=== PATIENT | female | born 1985 | race Caucasian/White ===

== ENCOUNTER 2024-09-02 19:39 | Emergency (ER) | payer OTHER, SELFPAY ==
[2024-09-02 19:46] VITALS: BP 179/123; PULSE 95; RESP 18; TEMP 36.4; O2SAT 97
[2024-09-02 19:52] VITALS: BP 190/133
[2024-09-02 20:38] VITALS: BP 158/107
--- NOTE | 2024-09-02 21:01 | ED_ITS ---
HPI - URI/Sore Throat General Chief Complaint: Upper Respiratory Infection Stated Complaint: Trouble Breathing Time Seen by Provider: 09/02/24 20:15 Source: patient and RN notes reviewed Mode of arrival: ambulatory Limitations: no limitations History of Present Illness HPI Narrative: 38-year-old female presents Express Care complaining of upper respiratory symptoms for 2 months. Patient says she has been off and on antibiotics and steroids for the same symptoms. Patient said that the antibiotics have helped in the past the [place] upon returning. Patient reports having a productive cough with green yellow discharge. Patient also reports chronic congestion and nasal drainage, and voice hoarseness. She denies any chest pain or shortness of breath. Says the cough worsens at night. Patient denies any fevers, chills, body aches, nausea, vomiting, diarrhea. Related Data Home Medications ?Medication ?Instructions ?Recorded ?Confirmed ?Last Taken ?Type albuterol sulfate 90 mcg/actuation 1 puff inhalation QID 09/02/24 09/02/24 Unknown History aerosol inhaler escitalopram oxalate 10 mg tablet 10 mg PO DAILY 09/02/24 09/02/24 Unknown History hydroxyzine HCl 25 mg tablet 25 mg PO HS 09/02/24 09/02/24 Unknown History Allergies Allergy/AdvReac Type Severity Reaction Status Date / Time No Known Allergies Allergy Unverified 09/02/24 19:51 Review of Systems Review of Systems: CONSTITUTIONAL: Denies fever, body aches, chills, or sweats. EYES: Denies visual changes, redness, or discharge. ENT: Denies rhinorrhea, sore throat, or otalgia. Positive for congestion and voice hoarseness. CARDIOVASCULAR: Denies chest pain, palpitations, or edema. RESPIRATORY: Positive for cough, negative for dyspnea. GASTROINTESTINAL: Denies abdominal pain, nausea, vomiting, or diarrhea. GENITOURINARY: Denies dysuria or hematuria. SKIN: Denies rash or itching. MUSCULOSKELETAL: Denies back pain, joint pain, or myalgia. NEUROLOGIC: Denies headache, numbness, or weakness. PSYCHIATRIC: Denies anxiety or depression. All other systems reviewed are negative, except as documented in HPI. PMFSH Comments At the time of my signature, I reviewed and agree with the nursing past medical, surgical, social, and family history. There is no relevant family history pertinent to the patient complaint. Exam Narrative: GENERAL: This is a well-nourished, well-developed adult, in no apparent distress. They are non ill-appearing, nontoxic appearing. HEAD: normocephalic, atraumatic. EYES: Sclera clear/white. Conjunctiva normal. Vision is grossly intact. Extraocular movements intact EARS: External ears normal, auditory canals clear and without drainage, TMs normal without perforation. Hearing grossly intact. NOSE: External nose normal with no obvious nasal discharge, nasal turbinates erythematous with yellow discharge present. Sinus tenderness to palpation to the maxillary sinuses. THROAT: Mucous membranes moist, posterior pharynx clear, without erythema or swelling. Uvula midline. Postnasal drip present. NECK: Neck supple, non-tender without lymphadenopathy, masses or thyromegaly. CARDIOVASCULAR: Regular rate and rhythm without murmurs, gallops, or rubs. RESPIRATORY: Clear to auscultation. Breath sounds equal bilaterally. No wheezes, rales, or rhonchi. Respiratory rate normal, respiratory effort nonlabored, no respiratory distress SKIN: warm, Dry, intact with no suspicious lesions or rash, good texture and turgor. NEURO: awake, alert, and oriented to person, place and time. There were no obvious focal neurologic abnormalities. EXTREMITIES: No joint tenderness, effusion, or edema noted. BACK: Nontender without deformity. No CVA tenderness. Course Course Emergency Course: Portions of this record may have been created with voice recognition software Level of Care: Express Care Visit Vital Signs Vital signs: Vital Signs Temperature 97.6 F 09/02/24 19:46 Pulse Rate 95 09/02/24 19:46 Respiratory Rate 18 09/02/24 19:46 Blood Pressure 179/123 H 09/02/24 19:46 Pulse Oximetry 97 09/02/24 19:46 Oxygen Delivery Room Air 09/02/24 19:46 Temperature 97.6 F 09/02/24 19:46 Pulse Rate 95 09/02/24 19:46 Respiratory Rate 18 09/02/24 19:46 Blood Pressure 158/107 H 09/02/24 20:38 Pulse Oximetry 97 09/02/24 19:46 Oxygen Delivery Room Air 09/02/24 19:46 Reviewed MDM - URI/Sore Throat MDM Narrative Medical decision making narrative: Is likely the patient has a recurrent sinusitis. Patient was last treated with a Z-[place] which is likely ineffective for sinus infection. Will treat her empirically with doxycycline. Patient likely may have a chronic bronchitis. Or give her additional prednisone pack. Patient is advised follow-up with PCP or ENT for further evaluation of her symptoms. Discussed physical exam findings. Advised supportive measures and signs/symptoms to go to the ER. Pt is appropriate for outpt treatment and f/u. It was noted patient's blood pressure was elevated while during her visit. Patient denies any hypertension history. Patient denies any symptoms or any headaches, blurry vision, chest pain. Recheck in the patient's blood pressure showed improvement to 158/107 using appropriate cuff size her patient. Patient advised follow-up PCP for further management of her blood pressure. Differential Diagnosis Differential diagnosis: Likely sinusitis, bronchitis and other (Pneumonia) Critical Care Time Critical Care Time Critical Care Time: No Discharge Plan Discharge Clinical Impression: Bronchitis Sinusitis Qualifiers: Sinusitis location: unspecified location Chronicity: acute Recurrence: recurrent Qualified Code(s): J01.91 - Acute recurrent sinusitis, unspecified Patient Disposition: Home Condition: Stable Instructions: Antibiotic Form, Sinusitis (ED), Acute Bronchitis (ED) Additional Instructions: Take prednisone as directed. Taken in the morning with food. Use albuterol as needed for any wheezing or shortness of breath. Take the antibiotics as directed and complete the course even if you start to feel better. Or sunscreen while taking doxycycline for going to be outside. You may use a Neti pot saline rinse 3 times a day luke warm distilled water. Continue to take Tylenol or Motrin for pain. Use a humidifier or vaporizer at night. Drink plenty of water. 8-10 glasses per day. Use flonase 2 times per day for 5 days then as needed Take mucinex 2 times per day and be sure to take with 8oz of water. Follow up with Primary provider if not getting better. You may need to follow-up with ENT for recurrent sinusitis. Patient Language: Monegasque Prescriptions: New prednisone 20 mg tablet 40 mg PO DAILY 5 Days Qty: 10 0RF doxycycline monohydrate 100 mg capsule 100 mg PO BID 7 Days Qty: 14 0RF albuterol sulfate [Ventolin HFA] 90 mcg/actuation HFA aerosol inhaler 2 puff inhalation QID PRN (Reason: shortness of breath or wheezing) Qty: 8.5 0RF No Action albuterol sulfate 90 mcg/actuation HFA aerosol inhaler 1 puff INHALATION QID escitalopram oxalate 10 mg tablet 10 mg PO DAILY hydroxyzine HCl 25 mg tablet 25 mg PO HS Follow-up/Referrals: Rita Pat MD [Physician] - PHYSICIAN,BLASTING ENTRYMAN [Primary Care Provider] - Time of Disposition: 20:37
== END 2024-09-02 20:42 | disposition home or self-care (01) ==
DX: J40 Bronchitis, not specified as acute or chronic (principal); J01.91 Acute recurrent sinusitis, unspecified; F41.9 Anxiety disorder, unspecified
CPT/HCPCS: 99213; G0463

== ENCOUNTER 2025-02-26 18:32 | Emergency (ER) | payer OTHER, SELFPAY ==
--- NOTE | ~2025-02-26 | XR_ITS ---
XR chest 2V HOSTORY: palpitations COMPARISON:[ None] FINDINGS: Frontal and lateral views of the chest were obtained. The lungs are clear. The heart size is normal in size. Pulmonary vasculature is unremarkable. Osseous structures are intact. IMPRESSION: No acute lung findings.] [ ] Reviewed, dictated and finalized at location S.
[2025-02-26 18:34] VITALS: BP 226/118; PULSE 92; RESP 16; TEMP 36.6; O2SAT 98
--- NOTE | 2025-02-26 18:39 | ECG_ITS ---
Test Date: 2025-02-26 18:40:45 Measurements Intervals [place] Rate: 75 P: 19 MO: 153 QRS: 45 QRSD: 88 T: 17 QT: 362 QTc: 406 Interpretive Statements SINUS RHYTHM WITH SINUS ARRHYTHMIA CONSIDER INFERIOR INFARCT, AGE INDETERMINATE ABNORMAL ECG No previous ECG available for comparison Electronically Signed On 02-26-2025 20:23:02 CDT by Abdon Davies D.O.
[2025-02-26 18:50] LABS: Hematocrit 42.9 % (37.0-47.0); Hemoglobin 13.7 g/dL (12.0-15.0); Immature Granulocyte Percent A 0.3 % (0-0.5); Lymphocytes Absolute Auto 4.15 K/mm3 (0.9-3.2); Mean Corpuscular HGB Conc 31.9 g/dl (32-36); Mean Corpuscular Hemoglobin 27.3 pg (26-34); Mean Corpuscular Volume 85.5 fl (80-100); Nucleated Red Blood Cells Absolute Auto 0.000 K/mm3 (0.0-0.012); Nucleated Red Blood Cells Perc 0.0 % (0.0-0.2); Platelet Count Result 410 k/mm3 (150-375); Red Blood Count 5.02 M/mm3 (4.2-5.4); White Blood Count 12.0 K/mm3 (4.5-10.0)
[2025-02-26 19:02] LABS: INR 1.0; Prothrombin Time 12.8 Seconds (11.1-14.7)
[2025-02-26 19:03] LABS: Partial Thromboplastin Time 28.8 Seconds (22.3-36.8)
[2025-02-26 19:05] LABS: Alanine Aminotransferase 45 U/L (6-35); Albumin Level 4.5 g/dL (3.5-5.1); Alkaline Phosphatase 90 U/L (38-126); Anion Gap 10 mmol/L (4-12); Aspartate Amino Transferase 38 U/L (14-36); Bilirubin,Total 0.5 mg/dL (0.2-1.3); Blood Urea Nitrogen 10 mg/dL (7-17); Calcium 9.1 mg/dL (8.4-10.2); Carbon Dioxide 27 mmol/L (22-30); Chloride 103 mmol/L (98-107); Estimated CRCL calculation 153 ml/min; Estimated Glomerular Filt Rate > 60; Glucose 90 mg/dL (65-110); Lipase 60 U/L (23-300); Potassium 3.7 mmol/L (3.4-5.0); Sodium 140 mmol/L (137-145); Total Protein 8.2 g/dL (6.3-8.2)
[2025-02-26 19:11] VITALS: BP 189/92; PULSE 91; RESP 19; TEMP 36.6; O2SAT 97
[2025-02-26 19:15] LABS: Troponin I < 0.012 ng/mL (0.000-0.034)
[2025-02-26 19:16] VITALS: BP 192/101; PULSE 88; RESP 20; TEMP 36.6; O2SAT 97
--- NOTE | 2025-02-26 19:42 | ED_ITS ---
HPI - Recheck/Abnormal Lab/Rx General Chief Complaint: Recheck/Abnormal Lab/Rx Stated Complaint: palpitations Time Seen by Provider: 02/26/25 19:22 History of Present Illness HPI narrative: 39-year-old female presenting to the emergency room with elevated blood pressure numbers and palpitations sensations. No symptoms such as chest pain, shortness a breath, syncope. Patient was getting her blood pressure checked by her pharmacist today and was elevated in the 190 range. Patient states she feels her heart rate but was also going through quite a bit of stressors in her life and feels anxious. She takes anxiety medication but no blood pressure medication. States that she has had elevated blood pressure readings during office visits and urgent care visits but not taking any blood pressure medicines for this. Was otherwise in her normal state of health. Ambulatory without any difficulty. Related Data Home Medications ?Medication ?Instructions ?Recorded ?Confirmed ?Last Taken ?Type albuterol sulfate 90 mcg/actuation 1 puff inhalation Q ID 09/02/24 09/02/24 Unknown History aerosol inhaler escitalopram oxalate 10 mg tablet 10 mg PO DAILY 09/0209/02/24 Unknown History hydroxyzine HCl 25 mg tablet 25 mg PO HS 09/02/2409/22 Unknown History Allergies Allergy/AdvReac Type Severity Reaction Status Date / Time No Known Allergies Allergy Verified 02/26/25 18:37 Review of Systems 2 Review of Systems: as reviewed above in HPI Exam 2 Narrative: GENERAL: [Well-appearing, well-nourished, and in no acute distress.] HEAD: [Normocephalic, atraumatic.] EYES: [PERRLA and EOMI.] ENT: Nares clear, no rhinorrhea or epistaxis. Mucous membranes moist. NECK: Supple. CHEST: [Clear to auscultation. No respiratory distress.] HEART: [Regular rate and rhythm]. No murmur heard. [Normal peripheral pulses.] ABDOMEN: [Soft, nondistended], [nontender], [No rigidity or guarding] EXTREMITIES: Normal range of motion. [No edema.] SKIN: Warm, dry, no rash. NEURO: [No focal deficits]. Alert and oriented [x3.] PSYCH: [Normal mood and affect.] Course Vital Signs Vital signs: Vital Signs Temperature 36.6 C 02/26/25 18:34 Pulse Rate 92 02/26/25 18:34 Respiratory Rate 16 02/26/25 18:34 Blood Pressure 226/118 H 02/26/25 18:34 Pulse Oximetry 98 02/26/25 18:34 Oxygen Delivery Room Air 02/26/25 18:34 Temperature 36.6 C 02/26/25 19:16 Pulse Rate 91 02/26/25 20:04 Respiratory Rate 19 02/26/25 20:04 Blood Pressure 184/94 H 02/26/25 20:04 Pulse Oximetry 100 02/26/25 20:04 Oxygen Delivery Room Air 02/26/25 19:11 MDM - Recheck/Abnormal Lab/Rx MDM Narrative Medical decision making narrative: 39-year-old female presenting to the emergency room with elevated blood pressure numbers and palpitations sensations. No symptoms such as chest pain, shortness a breath, syncope. Patient was getting her blood pressure checked by her pharmacist today and was elevated in the 190 range. Patient states she feels her heart rate but was also going through quite a bit of stressors in her life and feels anxious. She takes anxiety medication but no blood pressure medication. States that she has had elevated blood pressure readings during office visits and urgent care visits but not taking any blood pressure medicines for this. Was otherwise in her normal state of health. Ambulatory without any difficulty. patient is hypertensive here but already coming down without any interventions. Current blood pressure 175/101. Patient has no tachycardia, fever, hypoxia. No red flag signs or symptoms of hypertensive emergency. Cardiac workup underway at this time for screening. Laboratory studies are largely unremarkable. EKG and chest x-ray normal. Negative troponin. No renal dysfunction or electrolyte problems. Patient started on amlodipine after discussion with her about starting a blood pressure medicine for chronic hypertension control. She was given a 1st dose here and prescription for 30 days. She was given return precautions and follow-up instructions with her PCP. Medical Records Attestation: I reviewed the patient's medical records. Lab Data Attestation: I reviewed the patient's lab results. 02/26/25 18:41 02/26/25 18:41 Labs: Lab Results 02/26/25 Range/Units 18:41 WBC 12.0 H (4.5-10.0) K/mm3 RBC 5.02 (4.2-5.4) M/mm3 Hgb 13.7 (12.0-15.0) g/dL Hct 42.9 (37.0-47.0) % MCV 85.5 (80-100) fl MCH 27.3 (26-34) pg MCHC 31.9 L (32-36) g/dl RDW 13.7 (11.5-14.5) % Plt Count 410 H (150-375) k/mm3 MPV 9.8 (7.4-10.4) fl Immature Gran % (Auto) 0.3 (0-0.5) % Neut % (Auto) 54.3 (45.5-73.1) % Lymph % (Auto) 34.6 (18.3-44.2) % [place] % (Auto) 7.2 (2.6-8.5) % Eos % (Auto) 2.9 (0-4.4) % Baso % (Auto) 0.7 (0.2-1.2) % Lymph # (Auto) 4.15 H (0.9-3.2) K/mm3 [place] # (Auto) 0.9 H (0.1-0.6) K/mm3 Eos # (Auto) 0.4 H (0-0.3) K/mm3 Baso # (Auto) 0.1 (0.0-0.1) K/mm3 Abs Immat Gran (auto) 0.04 H (0.00-0.031) K/mm3 Absolute Neuts (auto) 6.5 (1.3-6.7) K/mm3 Absolute Nucleated RBC 0.000 (0.0-0.012) K/mm3 Nucleated RBC % 0.0 (0.0-0.2) % PT 12.8 (11.1-14.7) Seconds INR 1.0 APTT 28.8 (22.3-36.8) Seconds Sodium 140 (137-145) mmol/L Potassium 3.7 (3.4-5.0) mmol/L Chloride 103 (98-107) mmol/L Carbon Dioxide 27 (22-30) mmol/L Anion Gap 10 (4-12) mmol/L BUN 10 (7-17) mg/dL Creatinine 0.49 L (0.7-1.0) mg/dL Estim Creat Clear Calc 153 ml/min Estimated GFR > 60 (59 - ) Glucose 90 (65-110) mg/dL Calcium 9.1 (8.4-10.2) mg/dL Total Bilirubin 0.5 (0.2-1.3) mg/dL AST 38 H (14-36) U/L ALT 45 H (6-35) U/L Alkaline Phosphatase 90 (38-126) U/L Troponin I < 0.012 (0.000-0.034) ng/mL Total Protein 8.2 (6.3-8.2) g/dL Albumin 4.5 (3.5-5.1) g/dL Lipase 60 (23-300) U/L Imaging Data Attestation: I personally reviewed and interpreted this imaging study as follows: My impression: Impressions Chest X-Ray 02/26/25 19:13 IMPRESSION: No acute lung findings.] [ ] Discharge Plan Discharge Clinical Impression: Asymptomatic hypertension Patient Disposition: Home Condition: Stable Instructions: Antibiotic Form, Chronic Hypertension (DC) Additional Instructions: follow-up with your primary care provider. Take the amlodipine for blood pressure once a day. Return with any emergencies such as crushing chest pain, difficulty breathing, losing consciousness, stroke symptoms or any other concerning symptoms. Patient Language: Welsh Prescriptions: New amlodipine [Norvasc] 5 mg tablet 5 mg PO DAILY Qty: 30 0RF No Action albuterol sulfate 90 mcg/actuation HFA aerosol inhaler 1 puff INHALATION QID escitalopram oxalate 10 mg tablet 10 mg PO DAILY hydroxyzine HCl 25 mg tablet 25 mg PO HS prednisone 20 mg tablet 40 mg PO DAILY 5 Days Qty: 10 0RF doxycycline monohydrate 100 mg capsule 100 mg PO BID 7 Days Qty: 14 0RF albuterol sulfate [Ventolin HFA] 90 mcg/actuation HFA aerosol inhaler 2 puff inhalation QID PRN (Reason: shortness of breath or wheezing) Qty: 8.5 0RF Follow-up/Referrals: PHYSICIAN,PUBLIC RELATIONS ANALYST [Primary Care Provider, Internal Medicine] Time of Disposition: 19:42
--- OUTSIDE RECORDS SUMMARY | 2025-02-26 19:49 | XMS_ITS | Clinical Summary ---
Author Organization [facility] Address [address] [place] [address] Care Team Providers Care Play Reader Name Role Phone Unavailable Primary Care Provider Unavailabl e Source Comments [facility],non-owned Affiliates and Associated Physician Practices is amultiple site organization consisting of ambulatory clinics and hospital sitesin [place], [place], [place] and [place]. This disclosure is being madepursuant to the Care Everywhere program and may not contain all information available regarding this patient. Last updated 18.[employer] [facility] Allergies No known active allergies Medications * Be aware that medications may not be up to date on this document. Alwaysverify current medications with the patient. Cholecalciferol (VITAMIN D PO) Activ e fluticasone propionate (FLONASE) 50 MCG/ACT nasal sprayIndications:Acu te nasopharyngitis Marcellus 2 sprays into each nostril once daily 1 bottles 9 Active benzonatate (TESSALON) 200 MG capsuleIndications:U pper airway cough syndrome Take 1 capsule by mouth 3 times daily as needed for Cough 30 capsule 9 Active ciprofloxacin 0.3% (CILOXAN) 0.3 % ophthalmic solutionIndications: Acute bacterial conjunctivitis of right eye Instill 1 drop into right eye 3 times daily 5 mL 9 Active Social History Tobacco Use Types Packs/Day Years Used Date Smoking Tobacco: Never Smokeless Tobacco: Never Comments No Sex and Gender Information Value Date Recorded Sex Assigned at Not on file Legal Sex Female 5:43 AM [employer] Gender Identity Not on file Sexual Orientation Not on file Last Filed Vital Signs Vital Sign Reading Time Taken Comments Blood Pressure 116/74 05/03/2018 10:43 AM CIGAR BINDER Pulse 98 05/03/2018 10:43 AM CIGAR BINDER Temperature 36.9 C (98.4 F) 05/03/2018 10:43 AM CIGAR BINDER Respiratory Rate 16 05/03/2018 10:43 AM CIGAR BINDER Oxygen Saturation 97% 05/03/2018 10:43 AM CIGAR BINDER Inhaled Oxygen Concentration - - Weight 93 kg (205 lb) 05/03/2018 10:43 AM CIGAR BINDER Height 154.9 cm (5' 1) 05/03/2018 10:43 AM CIGAR BINDER Body Mass Index 38.73 05/03/2018 10:43 AM CIGAR BINDER Plan of Treatment Health Maintenance Due Date Last Done Comments LIPID TESTING 1984 MAMMOGRAM 1984 HIV SCREENING 09/22/1999 HEPATITIS C SCREENING 09/17/2002 DTAP/TDAP/TD VACCINES (1 - Tdap) 09/22/2003 HEPATITIS B VACCINE (1 of 3 - 19+ 3-dose series) 09/22/2003 PAP SMEAR 2005 HPV VACCINE (1 - 3-dose SCDM series) 09/22/2011 DEPRESSION SCREENING 05/01/2024 COVID-19 VACCINE (1 - 2023-2 5 season) 2024 INFLUENZA VACCINE (#1) 2024 ZOSTER VACCINE (1 of 2) 2034 HIB VACCINE Aged Out No longer eligi ble based on patient's age to complete this topic MENINGOCOCCAL (Group B) VACC INE SHARED DECISION-MAKING Aged Out No longer eligibl e based on patient's age to complete this topic MENINGOCOCCAL GROUPS A/C/Y/W VACCINE Aged Out No longer eligible b ased on patient's age to complete this topic PNEUMOCOCCAL VACCINE Aged Out No long er eligible based on patient's age to complete this topic Insurance [employer] [facility]
[2025-02-26 20:04] VITALS: BP 184/94; PULSE 91; RESP 19; O2SAT 100
== END 2025-02-26 20:06 | disposition home or self-care (01) ==
LOC: ANHED 19:48
PROVIDERS: Family Medicine; Emergency Provider Student in an Organized Health Care Education/Training Program
DX: I10 Essential (primary) hypertension (principal); F41.9 Anxiety disorder, unspecified; Z79.899 Other long term (current) drug therapy
CPT/HCPCS: 36415; 71046; 80053; 83690; 84484; 85025; 85610; 85730; 93005; 99284; A9270